=== PATIENT | female | born 1980 | race Caucasian/White ===

== ENCOUNTER 2017-09-22 06:26 | Inpatient (IN) | payer SELFPAY ==
[2017-09-22] MEDS ORDERED: SUBLIMAZE ONE (06:45)
[2017-09-22] MEDS ORDERED: SUBLIMAZE IV PRN (06:53)
[2017-09-22] MEDS ORDERED: LACTATED RINGERS 1,000 ML ONE (06:55)
[2017-09-22] MEDS: LACTATED RINGERS 1,000 ML IV SCH ×2 (07:44→09:42)
--- NOTE | 2017-09-22 07:50 | History and Physical Report ---
History of Present Illness Date of examination: 09/22/17 Date of admission: 09/22/17 06:39 Chief complaint: Labor History of present illness: Pt is a 36yo BF EDC 09/30/17; EGA 38 6/7 weeks presents to L&D complaining of RUC's q 3-4 mins and dilated 7cm. She received late care at [facility] transferring from the [facility] @ 35 weeks, and treated for + Chlamydia. records are available and GBS is Negative. Past History Past Medical History: other (AMA) [employer] History: chlamydia Family/Genetic History: diabetes, hypertension Social history: no significant social history, single - Obstetrical History Expected Date of Delivery: 09/30/17 Actual Gestation: 38 Week(s) 6 Day(s) : 2 Medications and Allergies Allergies Allergy/AdvReac Type Severity Reaction Status Date / Time No Known Allergies Allergy Verified 09/22/17 06:54 Home Medications Medication Instructions Recorded Confirmed Last Taken Type Vitamin 1 tab PO QDAY 09/22/17 09/22/17 09/21/17 History Active Meds: Active Medications Fentanyl (Sublimaze) 100 mcg IV Q2H PRN PRN Reason: Labor Pain Lactated Ringer's (Lactated Ringers) 1,000 mls @ 125 mls/hr IV DIRECT GISELE Review of Systems All systems: negative - Vital Signs Vital signs: Vital Signs Temp Resp 96.8 F L 22 09/22/17 06:53 09/22/17 06:53 Temp Pulse Resp BP Pulse Ox 96.8 F L 24 09/22/17 06:53 09/22/17 06:56 - Physical Exam Breasts: Positive: deferred Cardiovascular: Regular rate Lungs: Positive: Clear to auscultation Abdomen: Positive: normal appearance, soft Genitourinary (Female): Positive: normal external genitalia Vagina: Positive: normal moisture Uterus: Positive: enlarged Extremities: Positive: normal - Obstetrical FHR: category 1 Uterine Contraction Monitor Mode: External Cervical Dilatation: 7 (per nurse) Cervical Effacement Percentage: 70 (per nurse) station: -2 Uterine Contraction Pattern: Regular Uterine Tone Measurement Phase: Contraction Uterine Contraction Intensity: Moderate Results All other labs normal. Assessment and Plan - Patient Problems (1) 38 weeks gestation of Onset Date: 09/22/17 Current Visit: Yes Status: Acute Plan to address problem: A: IUP @ 38 6/7 weeks in labor AMA P: Admit to L&D for expectant vaginal delivery (2) AMA (advanced maternal age) multigravida 35+ Onset Date: 09/22/17 Current Visit: Yes Status: Acute Qualifiers: Trimester: third trimester Qualified Code(s): O09.523 - Supervision of elderly multigravida, third trimester
[2017-09-22] MEDS ORDERED: PITOCin/NS 20 UNIT/1000ML DRIP 20 UNITS/1,000 ML BAG IV SCH ×2 (08:00→11:00)
[2017-09-22] MEDS ORDERED: STADOL IV PRN (08:00)
[2017-09-22] MEDS ORDERED: LACTATED RINGERS 1,000 ML IV SCH (08:00)
[2017-09-22] MEDS ORDERED: BRETHINE SUB-Q PRN (08:00)
[2017-09-22] MEDS ORDERED: BRETHINE IVP PRN (08:00)
[2017-09-22] MEDS ORDERED: PITOCin/NS 30 UNIT/500ML 30 UNITS/500 ML BAG IV SCH ×2 (08:00)
[2017-09-22] MEDS ORDERED: ZOFRAN IV PRN ×2 (08:00→10:33)
[2017-09-22] MEDS ORDERED: MINERAL OIL PO PRN (08:00)
[2017-09-22] MEDS ORDERED: XYLOCAINE 2% INFILTRATI NR (08:00)
[2017-09-22 08:13] LABS: Hematocrit 38.2 % (30.3-42.9); Hemoglobin 13.1 gm/dl (10.1-14.3); Mean Corpuscular HGB Conc 34 % (30-34); Mean Corpuscular Hemoglobin 29 pg (28-32); Mean Corpuscular Volume 83 fl (79-97); Platelet Count 170 K/mm3 (140-440); Red Blood Count 4.59 M/mm3 (3.65-5.03); Red Cell Distribution Width 14.8 % (13.2-15.2)
[2017-09-22] MEDS ORDERED: NARCAN 2 MG/2 ML IV PRN (08:41)
--- NOTE | 2017-09-22 08:41 | Anesthesia Consultation ---
Anesthesia Consult and Med Hx Date of service: 09/22/17 - Airway Anesthetic Teeth Evaluation: Good ROM Head & Neck: Adequate Mental/Hyoid Distance: Adequate Mallampati Class: Class II Intubation Access Assessment: Probably Good - Pre-Operative Health Status ASA Pre-Surgery Classification: ASA2 Proposed Anesthetic Plan: Epidural, Spinal - Pulmonary Hx Asthma: No COPD: No Hx Pneumonia: No - Cardiovascular System Hx Hypertension: No - Central Nervous System Hx Seizures: No Hx Psychiatric Problems: No - Endocrine Hx Renal Disease: No Hx End Stage Renal Disease: No Hx Hypothyroidism: No Hx Hyperthyroidism: No - Hematic Hx Anemia: No Hx Sickle Cell Disease: No - Other Systems Hx Alcohol Use: No
[2017-09-22] MEDS ORDERED: fentaNYL-BUPIV 2 MCG/ML-0.125% 200 MCG/100 ML BAG EPIDURAL SCH (09:00)
--- NOTE | 2017-09-22 10:32 | Procedure Note ---
OB Delivery Note - Delivery Date of Delivery: 09/22/17 Surgeon: TY EL Estimated blood loss: 300cc - Vaginal Delivery presentation: vertex Delivery position: OA Intrapartum events: PROM->1hr before delivery Delivery induction: none Delivery augmentation: pitocin Delivery monitor: external FHT, external uterine Route of delivery: Delivery placenta: spontaneous Delivery cord: nuchal cord (x1), 3 umbilical vessels Episiotomy: none Delivery laceration: 2nd degree (perineal) Delivery repair: vicryl Anesthesia: epidural Delivery comments: Infant delivered OA and placed on Mom's chest for [id number] bonding and delayed cord clamping, cut by brother. - Infant A at 1 minute: 8 at 5 minutes: 9 Gender: Male (3940gms)
[2017-09-22] MEDS ORDERED: DULCOLAX PR PRN (10:33)
[2017-09-22] MEDS ORDERED: NORCO 5/325 PO PRN (10:33)
[2017-09-22] MEDS ORDERED: MILK OF MAGNESIA PO PRN (10:33)
[2017-09-22] MEDS ORDERED: PHENERGAN PR PRN (10:33)
[2017-09-22] MEDS ORDERED: PHENERGAN PO PRN (10:33)
[2017-09-22] MEDS ORDERED: LANSINOH TP PRN (10:33)
[2017-09-22] MEDS ORDERED: BENADRYL PO PRN (10:33)
[2017-09-22] MEDS ORDERED: TUCKS PAD TP PRN (10:33)
[2017-09-22] MEDS ORDERED: TYLENOL PO PRN (10:33)
[2017-09-22] MEDS ORDERED: SODIUM CHLORIDE FLUSH SYRINGE 10 ML IV SCH (11:00)
[2017-09-22] MEDS: MOTRIN PO SCH (18:48)
[2017-09-22] MEDS: FEOSOL PO SCH (21:06)
[2017-09-22] MEDS: COLACE PO SCH (21:06)
[2017-09-22 23:35] LABS: Hematocrit 34.9 % (30.3-42.9); Hemoglobin 11.8 gm/dl (10.1-14.3)
[2017-09-23] MEDS ORDERED: BOOSTRIX IM ONE (06:00)
[2017-09-23] MEDS: MOTRIN PO SCH ×2 (06:17)
--- NOTE | 2017-09-23 10:14 | Progress Note ---
Assessment and Plan - Patient Problems (1) 38 weeks gestation of Onset Date: 09/22/17 Current Visit: Yes Status: Resolved (2) AMA (advanced maternal age) multigravida 35+ Onset Date: 09/22/17 Current Visit: Yes Status: Chronic Qualifiers: Trimester: third trimester Qualified Code(s): O09.523 - Supervision of elderly multigravida, third trimester (3) (normal spontaneous vaginal delivery) Onset Date: 09/23/17 Current Visit: Yes Status: Resolved Plan to address problem: A: S/P - PPD #1 Doing well P: May go home tomorrow. Subjective - Subjective Date of service: 09/23/17 Principal diagnosis: s/p - PPD #1 Interval history: Pt is feeling well without complaints. Bleeding improved. Patient reports: appetite normal, voiding normally, pain well controlled, flatus , ambulating normally, no dizzy ambulation, no nauseated [place]: doing well, nursing well Objective - Vital Signs Latest vital signs: Vital Signs Temp Pulse Resp BP BP Pulse Ox 09/23/17 07:15 98.4 F 76 20 122/70 09/23/17 01:00 98.4 F 100 H 18 119/68 09/22/17 21:29 98.2 F 88 20 109/63 09/22/17 18:41 98.2 F 88 18 109/72 97 09/22/17 16:01 98.9 F 98 H 18 112/56 09/22/17 12:16 160 H 136/62 09/22/17 12:15 89 20 136/62 09/22/17 12:01 95 H 116/59 09/22/17 11:46 96 H 121/65 09/22/17 11:45 96 H 20 121/65 09/22/17 11:31 88 119/67 09/22/17 11:30 88 20 119/67 09/22/17 11:16 94 H 112/58 09/22/17 11:15 94 H 20 112/58 09/22/17 11:01 100 H 117/60 09/22/17 11:00 100 H 20 117/60 18 10:53 81 L 09/22/17 10:51 106 H 97 09/22/17 10:46 113 H 114/54 98 09/22/17 10:45 97.1 F L 112 H 18 114/54 98 09/22/17 10:41 118 H 99 09/22/17 10:36 109 H 99 09/22/17 10:31 108 H 138/60 97 09/22/17 10:26 113 H 97 09/22/17 10:25 112 H 133/64 Intake and Output 09/22/17 09/23/17 09/23/17 22:59 06:59 14:59 Intake Total 1200 240 Output Total 1700 Balance -500 240 Intake: Oral 480 Intake, Free Water 720 240 Output: Urine 1700 Void 1700 Other: Total, Intake Amount 480 Total, Output Amount 600 Voiding Method Toilet # Voids 0 Void 1 - Exam Breasts: Present: deferred Cardiovascular: Present: Regular rate Lungs: Present: Clear to auscultation Abdomen: Present: normal appearance, soft Uterus: Present: normal, firm, fundal height below umbilicus Extremities: Present: normal - Labs Labs: Laboratory Tests 09/22/17 09/22/17 09/22/17 06:45 06:45 06:45 WBC 10.5 RBC 4.59 Hgb 13.1 Hct 38.2 MCV 83 MCH 29 MCHC 34 RDW 14.8 Plt Count 170 RPR Nonreactive Blood Type A POSITIVE Antibody Screen Negative 09/22/17 22:44 WBC RBC Hgb 11.8 Hct 34.9 MCV MCH MCHC RDW Plt Count RPR Blood Type Antibody Screen
[2017-09-23] MEDS ORDERED: M-M-R II VACCINE SUB-Q ONE (10:33)
[2017-09-23] MEDS: PRENATAL VITAMIN PO SCH (10:49)
[2017-09-23] MEDS: FEOSOL PO SCH ×2 (10:50→22:00)
--- NOTE | 2017-09-23 11:01 | Discharge Summary ---
Providers - Providers Date of Admission: 09/22/17 06:39 Date of discharge: 09/24/17 Attending physician: TY EL Primary care physician: TY EL Hospitalization Reason for admission: active labor, IUP at term Delivery: Episiotomy: none Laceration: 2nd degree Other procedures: none complications: none Discharge diagnosis: IUP at term delivered [place] baby: male Hospital course: Unremarkable. Condition at discharge: Good Disposition: DC-01 TO HOME OR SELFCARE - Discharge Diagnoses (1) 38 weeks gestation of Status: Resolved (2) AMA (advanced maternal age) multigravida 35+ Status: Chronic Qualifiers: Trimester: third trimester Qualified Code(s): O09.523 - Supervision of elderly multigravida, third trimester (3) (normal spontaneous vaginal delivery) Status: Resolved Plan - Discharge Medications Prescriptions: Ferrous Sulfate [Feosol 325 MG tab] 325 mg PO BID #60 tablet Ibuprofen [Motrin 600 MG tab] 600 mg PO Q6HR #30 tablet Vit-Fe Fumar-FA [ Vitamin] 1 each PO QDAY #30 tablet - Provider Discharge Summary Activity: routine, no sex for 6 weeks, no heavy lifting 4 weeks, no strenuous exercise Diet: routine Instructions: routine Additional instructions: [] Smoking cessation referral if applicable(refer to patient education folder for contact #) [] Refer to [facility]'s [facility] Booklet Call your doctor immediately for: * Fever > 100.5 * Heavy vaginal bleeding ( >1 pad per hour) * Severe persistent headache * Shortness of breath * Reddened, hot, painful area to leg or breast * Drainage or odor from incision. * Keep incision clean and dry at all times and follow doctor's instructions regarding bathing/showering - Follow up plan Follow up: TY EL MD [Primary Care Provider] - 6 Weeks JEFFREY LEONARD CNM [Advanced Practice Nurse] - 6 Weeks
[2017-09-23] MEDS ORDERED: DERMOPLAST TP PRN (19:23)
[2017-09-23] MEDS: COLACE PO SCH (22:00)
[2017-09-24] MEDS: MOTRIN PO SCH ×2 (01:54→06:00)
[2017-09-24] MEDS ORDERED: BOOSTRIX IM ONE (06:00)
[2017-09-24 09:04] VITALS: BP 112/62
[2017-09-24] MEDS: FEOSOL PO SCH (10:38)
[2017-09-24] MEDS: COLACE PO SCH (10:38)
[2017-09-24] MEDS: PRENATAL VITAMIN PO SCH (10:38)
== END 2017-09-24 20:13 | disposition home or self-care (01) | DRG 775 ==
LOC: TRG 06:26 → LD 06:39 → OB 15:41
PROVIDERS: ADMIT Obstetrics & Gynecology; ATTEND Obstetrics & Gynecology
PROC: 10E0XZZ Delivery of Products of Conception, External Approach (ICD-10-PCS; principal; 2017-09-22)
PROC: 0KQM0ZZ Repair Perineum Muscle, Open Approach (ICD-10-PCS; 2017-09-22)
PROC: 3E0234Z Introduction of Serum, Toxoid and Vaccine into Muscle, Percutaneous Approach (ICD-10-PCS; 2017-09-22)
PROC: 3E0R3BZ Introduction of Anesthetic Agent into Spinal Canal, Percutaneous Approach (ICD-10-PCS; 2017-09-22)
PROC: 00HU33Z Insertion of Infusion Device into Spinal Canal, Percutaneous Approach (ICD-10-PCS; 2017-09-22)
DX: O42.02 Full-term premature rupture of membranes, onset of labor within 24 hours of rupture (principal); Z83.3 Family history of diabetes mellitus; Z82.49 Family history of ischemic heart disease and other diseases of the circulatory system; Z23 Encounter for immunization; O69.81X0 Labor and delivery complicated by cord around neck, without compression, not applicable or unspecified; O70.1 Second degree perineal laceration during delivery; Z37.0 Single live birth
CPT/HCPCS: 36415; 85014; 85018; 85027; 86592; 86850; 86900; 86901; 90715; A6250; J2590; J3010; J7120